=== PATIENT | female | born 1985 | race Two or more races ===

== ENCOUNTER 2023-06-01 09:14 | Emergency (ER) | payer MEDICAID ==
[~2023-06-01] VITALS: Ht 170.2 cm; Wt 59.0 kg
[2023-06-01 09:19] VITALS: BP 129/88; PULSE 75; RESP 18; TEMP 98.3; O2SAT 100
== END 2023-06-01 10:06 | disposition left against medical advice (07) ==
LOC: ER 09:14
DX: Z53.29 Procedure and treatment not carried out because of patient's decision for other reasons (principal)
CPT/HCPCS: 99281